=== PATIENT | female | born 1935 | race Caucasian/White ===

== ENCOUNTER 2017-04-25 16:33 | Emergency (ER) | payer OTHER, MEDICARE ==
[~2017-04-25] VITALS: Ht 165.1 cm; Wt 73.5 kg
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
[2017-04-25 19:02] VITALS: BP 193/80
[2017-04-25] MEDS ORDERED: LIDODERM1 EACH TOP (19:14)
== END 2017-04-25 19:25 ==
LOC: ERH 16:33
DX: S13.4XXA Sprain of ligaments of cervical spine, initial encounter (principal); V49.40XA Driver injured in collision with unspecified motor vehicles in traffic accident, initial encounter; Y92.488 Other paved roadways as the place of occurrence of the external cause